=== PATIENT | female | born 1980 | race American Indian/Alaskan Native ===

== ENCOUNTER 2019-05-19 11:06 | Outpatient (CLI) | payer OTHER ==
--- NOTE | 2019-05-19 14:26 | Vascular Lab Report ---
DUPLEX DOPPLER LOWER EXTREMITY VEINS, BILATERAL INDICATION: M79.606)Pain in leg, unspecified. Bilateral leg cramps. Bilateral lower extremity swelli ng. TECHNIQUE: Duplex doppler imaging was performed through the veins of both lower extremities using ve nous compression and other maneuvers. COMPARISON: No relevant prior imaging study available. FINDINGS: Right Common femoral vein: Negative. Right Superficial femoral vein: Negative. Right Popliteal vein: Negative. Right Calf veins: Negative. Left Common femoral vein: Negative. Left Superficial femoral vein: Negative. Left Popliteal vein: Negative. Left Calf veins: Negative. Additional findings: The peroneal veins were not visualized bilaterally.. IMPRESSION: No sonographic evidence for DVT in either lower extremity. Signer Name: Leo Warner Jr, MD Signed: 05/19/2019 2:21 PM Workstation Name: [id number]
== END 2019-05-19 11:07 | disposition home or self-care (01) ==
LOC: VAS 11:06
PROVIDERS: ATTEND Obstetrics & Gynecology
DX: M79.605 Pain in left leg (principal); M79.604 Pain in right leg
CPT/HCPCS: 93970